=== PATIENT | male | born 1950 | race Caucasian/White ===

== ENCOUNTER 2020-08-04 10:11 | Day surgery (SDC) | payer MEDICARE, OTHER ==
[~2020-08-04] VITALS: Ht 167.6 cm; Wt 65.0 kg
[~2020-08-04 10:11] MED LIST: SODIUM CHLORIDE 0.9% 1,000 ML ONE
[2020-08-04] MEDS ORDERED: LIDOCAINE/PF 2% 5 ML SYRINGE IVP ONE (10:12)
[2020-08-04] MEDS ORDERED: PROPOFOL 1% 20 ML VIAL IVP ONE (10:12)
[2020-08-04] MEDS ORDERED: SODIUM CHLORIDE 0.9% 1,000 ML IV ONE (11:00)
[2020-08-04 11:56] LABS: COVID AG,FIA SOURCE NASOPHARYNGEAL
== END 2020-08-04 15:02 | disposition home or self-care (01) ==
LOC: SURGERY 10:11
PROVIDERS: ATTEND Internal Medicine Gastroenterology
DX: D50.9 Iron deficiency anemia, unspecified (principal); K29.50 Unspecified chronic gastritis without bleeding; D12.7 Benign neoplasm of rectosigmoid junction; I10 Essential (primary) hypertension; K44.9 Diaphragmatic hernia without obstruction or gangrene; I25.10 Atherosclerotic heart disease of native coronary artery without angina pectoris; D64.9 Anemia, unspecified; Z79.899 Other long term (current) drug therapy; Z98.890 Other specified postprocedural states; Z79.82 Long term (current) use of aspirin; F31.9 Bipolar disorder, unspecified; I50.9 Heart failure, unspecified
CPT/HCPCS: 45385; 43239; 87426; 88305; 88312; 88313; 93005; C1769; C9803; J2704; J3490; J7030